=== PATIENT | male | born 1980 | race Caucasian/White ===

== ENCOUNTER 2019-04-28 12:35 | Emergency (ER) | payer SELFPAY ==
[~2019-04-28] VITALS: Ht 170.2 cm; Wt 122.5 kg
[2019-04-28 12:51] VITALS: BP 134/97
--- NOTE | 2019-04-28 13:03 | NUR ---
PT AMB TGO BED 9
--- NOTE | 2019-04-28 13:27 | NUR ---
PT TO ED WITH REQUEST FOR SUTURE REMOVAL TO RT LEG. DENIES DISCHARGE/DRAINAGE. REDNESS NOTED TO SITE. CMS INTACT. PT IN BED, PENDING MD HEATON.
[2019-04-28 14:24] VITALS: BP 134/97
--- NOTE | 2019-04-28 14:24 | NUR ---
Patient discharged with v/s stable. Written and verbal after care instructions given and explained. Patient alert, oriented and verbalized understanding of instructions. Ambulatory with steady gait. All questions addressed prior to discharge. ID band removed. Work excuse provided until 04/30/19. Patient advised to follow up with PMD. Rx of Bacitracin 500 unit/g topical ointment given. Patient educated on indication of medication including possible reaction and side effects. Opportunity to ask questions provided and answered.
== END 2019-04-28 14:24 | disposition home or self-care (01) ==
LOC: MED 12:35
DX: S81.011D Laceration without foreign body, right knee, subsequent encounter (principal); X58.XXXD Exposure to other specified factors, subsequent encounter
CPT/HCPCS: 99283